=== PATIENT | male | born 1955 | race Caucasian/White ===

== ENCOUNTER 2017-04-28 12:23 | Emergency (ER) | payer BC ==
[~2017-04-28] VITALS: Ht 170.2 cm; Wt 69.0 kg
[2017-04-28 12:28] VITALS: TEMP 36.6; Ht 170.2 cm; Wt 69.0 kg
[2017-04-28] MEDS ORDERED: OXYC-57 PO (13:33)
[2017-04-28] MEDS ORDERED: CABE0.5T PO (13:41)
[2017-04-28] MEDS ORDERED: TRAV0.00 OP (13:41)
--- NOTE | 2017-04-28 14:40 | DIAGNOSTIC IMAGING REPORT ---
MRI LUMBAR SPINE W/O CONTRAST CLINICAL HISTORY: Left L1 disc protrusion. History of epidural steroid injection. Increasing pain. Left leg radiculopathy. TECHNIQUE: Sagittal and axial T1, T2 and STIR images were obtained. COMPARISON STUDY: No previous studies for comparison. OBSERVATIONS: The vertebral bodies and posterior elements appear intact. There is no abnormal bony signal present to suggest a marrow replacement process. L1-2: No disc protrusions or extrusions. No evidence of spinal canal or neural foraminal compromise. L2-3: No disc protrusions or extrusions. No evidence of spinal canal or neural foraminal compromise. L3-4: No disc protrusions or extrusions. No evidence of spinal canal or neural foraminal compromise. L4-5: No disc protrusions or extrusions. No evidence of spinal canal or neural foraminal compromise. L5-S1: There is a moderate left-sided disc extrusion which abuts and displaces the left S1 nerve root. The conus medullaris and cauda equina appear normal. IMPRESSION: Moderate left paracentral disc protrusion at the L5-S1 level. This abuts and displaces the left S1 nerve root. Electronically signed by: Santo Brandt M.D. 04/28/2017 2:39 PM Dictated Date/Time: 04/28/2017 2:35 PM
--- NOTE | 2017-04-28 15:50 | EMERGENCY ROOM VISIT NOTE ---
ED Visit Note First contact with patient: 13:15 CHIEF COMPLAINT: Low back pain HISTORY OF PRESENT ILLNESS: This 61-year-old male patient presents to the emergency department ambulatory, with his complaining of pain in the low back which has been worsening since a steroid epidural injection which was completed last . Patient is being followed by Dr. marino regarding chronic low back pain and disc protrusion in lumbosacral spine. Patient states injection was completed on and this was his second epidural injection. He states when pain began worsening over the weekend, he called Dr. marino received a prescription for Medrol Dosepak starting yesterday. Despite the medications, patient continues to experience severe discomfort in the left side of his lower back. Patient states pain is significantly worse than it has ever been, and he is experiencing weakness in his left lower extremity. The pain is now constant and worse with movement. He experiences relief from the pain while laying flat on his back and his right side. Patient states last Friday, he attempted to go on a camping trip with friends, but had to leave early due to extreme pain. He has been taking Percocet every 5 hours since Friday under the direction of Dr. marino. The patient notes the pain as sharp and steady and a 10/10. The patient has taken methylprednisolone and Percocet for relief of the pain with only minimal improvement. The patient denies any loss of control of their bowel or bladder functions. There has been leg numbness and weakness on the left, but no change in sensation. No nausea or vomiting or abdominal pain. No chest pain or shortness of breath. The patient has had prior back injuries. No dysuria or increased urinary frequency. Patient states he contacted Dr. marino, who advised him to seek care in the emergency department for follow-up MRI regarding worsening symptoms. REVIEW OF SYSTEMS: A review of systems was performed with positives and pertinent negatives listed in the history of present illness. All other systems were reviewed and are negative. ALLERGIES: none MEDICATIONS: Methylprednisolone, Percocet, Travatan, Cabergoline, Vitamin D3 PMH: Pituitary tumor, elevated IOP, kidney stones, Disc protrusion, L-S spine SOCIAL HISTORY: Pt. lives locally with his family. He does occasionally smoke cigars, but denies other tobacco, alcohol, or drug use. PHYSICAL EXAM: VITALS: Vitals are noted on the nurse's note and reviewed by myself. Vital signs stable. GENERAL: 61-year-old male, in no acute distress, nondiaphoretic, well-developed well-nourished. SKIN: The skin was without rashes, erythema, edema, or bruising. Capillary refill less than 2 seconds. NECK: Supple without nuchal rigidity. No cervical spine tenderness. No paraspinous muscle tenderness. HEART: Regular rate and rhythm without murmurs gallops or rubs. LUNGS: Clear to auscultation bilaterally without wheezes, rales or rhonchi. ABDOMEN: Positive bowel sounds x 4. Normal tympanic percussion. Soft, nontender, without masses or organomegaly. Soliman sign negative. MUSCULOSKELETAL: No muscle atrophy, erythema, or edema noted of the back. There is severe tenderness over the lumbar spinous processes on the leftt side. There is moderate tenderness over the paraspinous muscles on the left. There is no tenderness over the thoracic spine or paraspinous muscles. There are no muscle spasms present. The patient is slow to move around with maximum tenderness with changing positions. positive straight leg raise test on the left. NEURO: Patient was alert and oriented to person place and time. Normal sensation to light and sharp touch. Deep tendon reflexes 2+ in the lower extremities. Dorsalis pedis pulse 2+ bilaterally. Strength 5/5 and equal in the bilateral lower extremities. EMERGENCY DEPARTMENT COURSE: Pt. was seen by me and evaluated as above. Patient declined pain medicine in the emergency department. MRI completed and reviewed by radiologist which showed: OBSERVATIONS: The vertebral bodies and posterior elements appear intact. There is no abnormal bony signal present to suggest a marrow replacement process. L1-2: No disc protrusions or extrusions. No evidence of spinal canal or neural foraminal compromise. L2-3: No disc protrusions or extrusions. No evidence of spinal canal or neural foraminal compromise. L3-4: No disc protrusions or extrusions. No evidence of spinal canal or neural foraminal compromise. L4-5: No disc protrusions or extrusions. No evidence of spinal canal or neural foraminal compromise. L5-S1: There is a moderate left-sided disc extrusion which abuts and displaces the left S1 nerve root. The conus medullaris and cauda equina appear normal. IMPRESSION: Moderate left paracentral disc protrusion at the L5-S1 level. This abuts and displaces the left S1 nerve root. I compared this MRI with previous MRI completed 03/11/[address] Marino and reviewed by radiologist at [facility]. This MRI had findings of: 1. Nerve root contact at L2-L3, L3-L4, L4-L5, L5-S1. Correlation with dermatomal symptom level recommended. 2.Multilevel neural foraminal narrowing, at worse moderate. 3. L4 and S2 vertebral body T2/STIR hyperintense and T1 isointense lesions which cannot be further characterized. Differential diagnosis includes osseous metastases or atypical hemangiomas (venous malformations). Lumbar spine CT could be considered to assess for bony trabeculations (characteristic of hemangiomas). 4. Grade 1 retrolisthesis of L5 on S1. 5. No lumbar spinal canal stenosis. Discussion with patient regarding no significant change noted on MRI and no hematoma related to recent epidural. Spoke with Qi, environmental conservation officer, at Dr. Marino office who informed me that the patient was offered an appointment today , but declined. Qi scheduled patient an appointment for tomorrow at 1:15 for follow-up regarding complaints and workup completed today. Patient states he believes he has 5 Percocet at home and will use this throughout the night as directed for pain management until follow-up tomorrow. DIAGNOSIS: L5-S1 disc protrusion which abuts and displaces the left S1 nerve root. DISCHARGE INSTRUCTIONS AND TREATMENT: Rest off your feet, and heat to the low back. See Dr. marino tomorrow for follow-up. Use Percocet as directed for pain management and continue taking Medrol Dosepak as prescribed by Dr. marino. In addition, may use Ibuprofen 600 mg and Tylenol 1000 mg every 6 hours if needed for the pain, however he should not exceed a dose of 4000 mg of Tylenol from all sources including Percocet and 24 hours. Return if any problems with bowel or bladder function or if loss of sensation/movement of lower extremities. Current/Historical Medications Scheduled Cabergoline (Cabergoline), 0.5 MG PO 3XWK Travoprost (Travatan Z), 1 DROPS OP HS Scheduled PRN Oxycodone/Acetaminophen 5MG/325MG (Percocet 5MG/325MG), 1 TABLET PO Q5H PRN for Pain Allergies Coded Allergies: No Known Allergies (Unverified , 04/28/17) Vital Signs Date Time Temp Pulse Resp B/P (MAP) Pulse Ox O2 Delivery O2 Flow Rate FiO2 04/28/17 15:56 60 18 139/92 98 04/28/17 13:53 59 18 124/75 97 Room Air 04/28/17 12:28 36.6 85 20 139/91 98 Room Air Departure Information Impression Primary Impression: Intervertebral disc extrusion Additional Impression: Low back pain radiating down leg Dispostion Home / Self-Care Condition GOOD Referrals Can Marino D.O. (PCP) tomorrow at 1:15 Patient Instructions My [facility] Additional Instructions You have been treated in the Emergency Department for Back Pain related to disc extrusion at L5-S1 which abuts and displaces the left S1 nerve root. Take Percocet you have at home as prescribed for pain control. This is a narcotic medication. You cannot drive or consume alcohol while on this medicine. This medicine should only be used for pain that cannot be controlled with [id number] pain medicines. Continue to take Medrol Dosepak as prescribed to you by Dr. marino. For pain control, you can use the following [id number] medicines (if >12 yo): - Regular strength (325mg/tab) Tylenol (acetaminophen) 2 tabs every 4-6 hours as needed. Do not exceed 12 tablets in a 24 hour period. Avoid taking more than 4 grams (4000 mg) of Tylenol per day. This includes any other sources of acetaminophen you may take on a regular basis, including Percocet. - Regular strength (200 mg/tab) Advil (ibuprofen) 1-2 tabs every 4-6 hours as needed. Do not exceed a dose of 3200 mg per day. Use a heating pad can be used over the area for continued soothing relief. Your scheduled to follow-up with Dr. marino tomorrow regarding further pain management. Return to the Emergency Department if your current symptoms worsen despite treatment course outlined above, or if you develop any of the following symptoms : intractable pain despite aforementioned treatment course, loss of control of your bowel or bladder, numbness or tingling in your groin, or development of a fever. Problem Qualifiers
[2017-04-28 15:56] VITALS: BP 139/92; PULSE 60; O2SAT 98
[2017-05-02] MEDS ORDERED: RXC5 PO (07:21)
== END 2017-04-28 16:00 | disposition home or self-care (01) ==
LOC: C.EDB 12:25 → C.EDD 16:00
DX: M51.26 Other intervertebral disc displacement, lumbar region (principal); Z87.442 Personal history of urinary calculi; Z85.9 Personal history of malignant neoplasm, unspecified; F17.290 Nicotine dependence, other tobacco product, uncomplicated; Z79.899 Other long term (current) drug therapy

== ENCOUNTER → 2017-04-29 | Outpatient (CLI) | payer BC ==
[~2017-04-29] MED LIST: CABE0.5T PO; OXYC-57 PO; RXC5 PO; TRAV0.00 OP
--- NOTE | 2017-04-29 16:30 | DIAGNOSTIC IMAGING REPORT ---
CHEST 2 VIEWS ROUTINE CLINICAL HISTORY: PRE-OP, COMING FROM LAB THEN TO [facility] COMPARISON STUDY: No previous studies for comparison. FINDINGS: The bones soft tissues and hemidiaphragms are normal. The cardiomediastinal silhouette is normal. The lungs are clear. The pulmonary vasculature is normal. IMPRESSION: Negative chest. Electronically signed by: Rosendo Davila M.D. 04/29/2017 4:28 PM Dictated Date/Time: 04/29/2017 4:28 PM
[2017-04-29 16:40] LABS: BASO % 0.4 %; BASO ABS # 0.04 K/uL (0-0.2); COMPLETE YES; EOS % 0.2 %; HEMATOCRIT 40.6 % (42-52); IG% 0.4 %; LYMPH % 20.3 %; LYMPH ABS # 1.98 K/uL (1.2-3.4); MEAN CELL VOLUME 87.7 fL (80-100); MEAN CORPUSCULAR HEMOGLOBIN 28.9 pg (25-34); MEAN PLATELET VOLUME 9.9 fL (7.4-10.4); MONO % 9.4 %; NEUT % 69.3 %; PLATELET COUNT 276 K/uL (130-400); RED BLOOD COUNT 4.63 M/uL (4.7-6.1); WHITE BLOOD COUNT 9.75 K/uL (4.8-10.8)
[2017-04-29 16:41] LABS: URINE APPEARANCE CLEAR (CLEAR); URINE BILIRUBIN NEG (NEG); URINE COLOR YELLOW; URINE NITRITE NEG (NEG); URINE SPECIFIC GRAVITY 1.015 (1.000-1.030); UROBILINOGEN NEG (NEG)
[2017-04-29 16:47] LABS: MANUAL MICROSCOPIC REQUIRED? NO; REVIEW REQ? NO
[2017-04-29 17:08] LABS: BLOOD UREA NITROGEN 16 mg/dl (7-18); BUN/CREATININE RATIO 15.5 (10-20); CALCIUM 8.6 mg/dl (8.5-10.1); CARBON DIOXIDE 33 mmol/L (21-32); CHLORIDE 106 mmol/L (98-107); GLUCOSE 90 mg/dl (70-99); POTASSIUM 3.5 mmol/L (3.5-5.1); SODIUM 144 mmol/L (136-145)
== END | disposition home or self-care (01) ==
LOC: C.CPL 15:58
PROVIDERS: ATTEND Physician Assistant Medical
DX: M51.26 Other intervertebral disc displacement, lumbar region (principal); Z01.810 Encounter for preprocedural cardiovascular examination

== ENCOUNTER 2017-05-01 10:45 | Inpatient (IN) | payer BC ==
[2017-04-30 15:51] VITALS: BMI 23.0
[~2017-05-01] VITALS: Ht 170.2 cm; Wt 68.6 kg
[~2017-05-01 10:45] MED LIST changes: +CEFAZOLIN 1000MG/55 ML D5W IV SCH; +LACTATED RINGER'S 1000ML 1,000 ML IV SCH; +PATIENT'S HEIGHT AND/OR WEIGHT NEEDED SCH; -RXC5 PO
[2017-05-01 11:20] VITALS: BP 158/106; PULSE 53; TEMP 36.7; O2SAT 98; Ht 170.2 cm; Wt 68.6 kg
[2017-05-01] MEDS ORDERED: BUPIVACAINE/EPINEPHRINE 0.5% MPF 1:200,000 30 ML VIAL ONE (12:05)
[2017-05-01] MEDS ORDERED: BACITRACIN 50000 UNIT VIAL ONE (12:06)
--- NOTE | 2017-05-01 12:48 | History & Physical Bridge Note ---
H&P Re-Evaluation Bridge Note: I have examined the patient, reviewed the History & Physical and in the interval since the performance of the History & Physical I have noted the following changes of clinical significance: No changes noted
--- NOTE | 2017-05-01 12:49 | History and Physical ---
History & Physical Date May 01, 2017. Chief Complaint back and leg pain History of Present Illness The patient is a 61 year old male with complaints of Additional History Hepatic Disease: No Endocrine Disorder: No Kidney Disease: No Hypertension: No Heart Disease: No Bleeding Tendencies: No Infectious Diseases: No Allergies Coded Allergies: No Known Allergies (Unverified , 05/01/17) Home Medications Scheduled Cabergoline (Cabergoline), 0.5 MG PO 3XWK Travoprost (Travatan Z), 1 DROPS OP HS Scheduled PRN Oxycodone/Acetaminophen 5MG/325MG (Percocet 5MG/325MG), 1 TABLET PO Q5H PRN for Pain Physical Examination Skin: warm/dry, no rash Eyes: normal inspection, EOMI, sclerae normal ENT: normal ENT inspection, pharynx normal Head: normocephalic, atraumatic Neck: supple, no adenopathy, trachea midline Respiratory/Chest: lungs clear, normal breath sounds, no respiratory distress Cardiovascular: regular rate, rhythm, no edema, no murmur Abdomen / GI: normal bowel sounds, non tender Back: normal inspection Extremities: normal inspection, normal range of motion Neurologic/Psych: no motor/sensory deficits, alert, normal reflexes, oriented x 3 Diagnosis HNP L5-S1 Plan of Treatment laminectomy L5-S1 Left
[2017-05-01] MEDS ORDERED: MIDAZOLAM HCL 1 MG/ML 2ML VIAL ONE (12:55)
[2017-05-01] MEDS ORDERED: FENTANYL CITRATE INJ 50 MCG/1 ML 2 ML VIAL ONE ×2 (12:55→13:24)
[2017-05-01] MEDS ORDERED: HYDROmorphone INJ 2 MG/ML SYR/VIAL ONE (13:24)
[2017-05-01] MEDS ORDERED: LIDOCAINE HCL 2% 2 ML VIAL (20MG/ML) ONE (13:42)
[2017-05-01] MEDS ORDERED: GLYCOPYRROLATE INJ 0.2 MG/ML VIAL ONE (13:42)
[2017-05-01] MEDS ORDERED: DEXAMETHASONE SOD INJ 4 MG/ML VIAL ONE (13:42)
[2017-05-01] MEDS ORDERED: ROCURONIUM BROMIDE 10 MG/ML 5 ML VIAL ONE (13:42)
[2017-05-01] MEDS ORDERED: EpHEDrine SULFATE INJ 50 MG/ML AMP ONE (13:42)
[2017-05-01] MEDS ORDERED: NEOSTIGMINE METHYLSULFATE 1 MG/ML 10ML VIAL ONE (13:42)
[2017-05-01] MEDS ORDERED: ONDANSETRON INJ 2 MG/ML 2 ML VIAL ONE (13:42)
[2017-05-01] MEDS ORDERED: PROPOFOL IV EMULSION 10 MG/ML 20 ML VIAL IV ONE (13:42)
[2017-05-01] MEDS ORDERED: FLOSEAL HEMOSTATIC MATRIX 5ML TOP ONE (13:54)
--- NOTE | 2017-05-01 13:57 | [facility] Post Operative Brief Note ---
Immediate Operative Summary Operative Date May 01, 2017. Pre-Operative Diagnosis Herniated Nucleus Pulposus L5-S1 left Post-Operative Diagnosis Herniated Nucleus Pulposus L5-S1 left Procedure(s) Performed Left L5-S1 Microdiscectomy Surgeon Dr. Audra Chappell Remelt Operator Surgeon(s) none Estimated Blood Loss 10mL Findings hnp Specimens none per surgeon
[2017-05-01] MEDS ORDERED: DO NOT ADMINISTER FLU VACCINE PRN ×3 (14:00)
[2017-05-01] MEDS ORDERED: ONDANSETRON INJ 2 MG/ML 2 ML VIAL IV PRN (14:00)
[2017-05-01] MEDS ORDERED: DO NOT ADMINISTER PNEUMOCOCCAL VACCINE PRN ×2 (14:00)
[2017-05-01] MEDS ORDERED: LORAZEPAM INJ 1 MG in SYRINGE 0 ML IV PRN (14:00)
[2017-05-01] MEDS ORDERED: ACETAMINOPHEN 325 MG TAB PO PRN (14:00)
[2017-05-01] MEDS ORDERED: ACETAMINOPHEN 500 MG TAB PO PRN (14:00)
[2017-05-01] MEDS ORDERED: LABETALOL HCL IV 5 MG/ML 20ML IV ONE (14:14)
[2017-05-01] MEDS ORDERED: KETOROLAC TROMETHAMINE 30 MG/ML VIAL ONE (14:14)
[2017-05-01] MEDS ORDERED: IV FLUIDS COMPLETED PRN (14:15)
--- NOTE | 2017-05-01 14:21 | DIAGNOSTIC IMAGING REPORT ---
INTRAOPERATIVE RADIOGRAPH CLINICAL HISTORY: L5-S1 microdiscectomy. Fluoroscopy time: 4 seconds. FINDINGS: A single spot fluoroscopic image of the lumbar spine is presented. A cerclage wire is noted posteriorly at the level of S1. IMPRESSION: Intraoperative image of the lower lumbar spine. See operative report for detailed findings. Electronically signed by: Deshawn Haynes M.D. 05/01/2017 2:20 PM Dictated Date/Time: 05/01/2017 2:19 PM
--- NOTE | 2017-05-01 15:13 | Anesthesiology Progress Note ---
Anesthesia Post Op Note Date & Time May 01, 2017 at 15:14 Vital Signs Pain Intensity: 0 Vital Signs Past 12 Hours Date Time Temp Pulse Resp B/P (MAP) Pulse Ox O2 Delivery O2 Flow Rate FiO2 05/01/17 14:53 36.6 51 16 174/96 100 Mask 2 05/01/17 14:43 54 21 100 05/01/17 14:43 53 21 05/01/17 14:42 168/95 05/01/17 14:38 53 12 05/01/17 14:38 53 12 100 05/01/17 14:37 178/95 05/01/17 14:33 69 14 183/114 100 05/01/17 14:33 69 14 05/01/17 14:29 166/102 05/01/17 14:28 59 11 05/01/17 14:28 58 11 100 05/01/17 14:27 174/107 05/01/17 14:26 58 11 05/01/17 14:26 58 11 100 05/01/17 14:22 173/104 05/01/17 14:21 62 22 100 05/01/17 14:21 64 22 05/01/17 14:17 179/101 05/01/17 14:16 62 7 93 05/01/17 14:16 57 7 05/01/17 14:12 173/103 05/01/17 14:11 69 19 100 05/01/17 14:11 69 19 05/01/17 14:08 174/99 05/01/17 14:06 36.2 60 13 174/99 100 Mask 10 05/01/17 11:20 36.7 53 20 158/106 (123) 98 Room Air Notes Mental Status: alert / awake / arousable, participated in evaluation Pt Amnestic to Procedure: Yes Nausea / Vomiting: adequately controlled Pain: adequately controlled Airway Patency, RR, SpO2: stable & adequate BP & HR: stable & adequate Hydration State: stable & adequate Anesthetic Complications: no major complications apparent
[2017-05-01] MEDS ORDERED: EpHEDrine SULFATE INJ 50 MG/ML AMP IV PRN (15:15)
[2017-05-01] MEDS ORDERED: ATROPINE SULFATE 0.1 MG/ML 5ML SYR IV PRN (15:15)
--- NOTE | 2017-05-01 16:05 | OPERATIVE REPORT ---
DATE OF OPERATION: 05/01/2017 PREOPERATIVE DIAGNOSIS: Herniated nucleus pulposus, L5-S1, left. POSTOPERATIVE DIAGNOSES: Same with evidence of a herniated free fragment. SURGEON: Dr. Ru Chappell. ANESTHESIA: General. DISPOSITION: The patient awakened and taken to PACU in stable condition. HISTORY OF PATIENT'S PROBLEMS: This is a 61-year-old male who presents with above-mentioned diagnosis. After failing an extensive course of nonoperative care, elected to undergo the above-mentioned procedure. Risks, benefits, pros, cons, and alternatives were outlined in detail preoperatively. DESCRIPTION OF PROCEDURE: The patient was met with preoperatively, case discussed and all questions were addressed. At that point the patient was taken back to the operative suite and after undergoing successful general intubation by the department of anesthesia was placed in prone position on Tonio table atop Kirill frame. All bony prominences were well padded and the eyes were inspected to ensure there was no external pressure placed upon them. At this point, lumbar spine was prepped and draped in normal sterile fashion. With the assistance of fluoroscopy, we identified the L5-S1 disc space and a midline incision was created overlying this region. Sharp dissection with the assistance of Bovie cautery performed down to and exposing L5-SI disk space on the left. A self-retaining retractor was placed. Small laminotomy was created including excision of the lateral portion of ligamentum flavum to expose a significantly compressed traversing nerve root. A massive free fragment was identified and removed creating significant decompression. The incision was then copiously irrigated, explored to ensure there no damage to surrounding structures or remaining bleeding. The incision then closed with 1-0 Vicryl in the fascia, 2-0 Vicryl subcutaneously, 4-0 Monocryl for final skin closure. Steri-Strips and sterile dressing were placed. The patient was awakened and taken to PACU in stable condition. I attest to the content of the Intraoperative Record and any orders documented therein. Any exception s are noted below.
[2017-05-01 16:27] VITALS: BP 168/83; PULSE 55; TEMP 36.8; O2SAT 97
[2017-05-01] MEDS: LACTATED RINGER'S 1000ML 1,000 ML IV SCH (16:27)
[2017-05-01 17:02] VITALS: BP 158/88; PULSE 58; TEMP 37; O2SAT 97
[2017-05-01 18:00] VITALS: BP 146/96; PULSE 65; TEMP 37.1; O2SAT 95
[2017-05-01 19:00] VITALS: BP 126/79; PULSE 69; TEMP 36.8; O2SAT 97
[2017-05-01] MEDS: CEFAZOLIN IV 1,000 MG in DEXTROSE 5% 50ML 50 ML IV SCH (21:31)
[2017-05-01] MEDS: TRAVOPROST Z 0.004% OPH SOLN 2.5 ML BTL OP SCH (21:39)
[2017-05-01] MEDS: DOCUSATE SODIUM 100 MG CAP PO SCH (21:41)
[2017-05-01 23:37] VITALS: BP 126/88; PULSE 68; TEMP 37.4; O2SAT 95
[2017-05-02] MEDS: OXYCODONE HCL IR 5 MG TAB (IMMEDIATE RELEASE) PO PRN ×2 (01:02→07:27)
[2017-05-02] MEDS: LACTATED RINGER'S 1000ML 1,000 ML IV SCH ×2 (01:02→05:20)
[2017-05-02 04:04] VITALS: BP 150/84; PULSE 64; TEMP 37.2; O2SAT 96
[2017-05-02] MEDS: KETOROLAC TROMETHAMINE 30 MG/ML VIAL IV. PRN ×2 (04:19→18:21)
[2017-05-02] MEDS: CEFAZOLIN IV 1,000 MG in DEXTROSE 5% 50ML 50 ML IV SCH ×2 (05:15→12:54)
[2017-05-02] MEDS: HYDROmorphone INJ 1 MG/ML SYR IV PRN ×2 (05:16→23:08)
[2017-05-02 07:20] VITALS: BP 126/80; PULSE 63; TEMP 37.2; O2SAT 95
[2017-05-02] MEDS ORDERED: RXC5 PO (07:21)
--- NOTE | 2017-05-02 07:22 | Discharge Instructions ---
Discharge Instructions Date of Service May 02, 2017. Admission Reason for Admission: Lumbar Spinal Stenosis Discharge Discharge Diagnosis / Problem: hnp Discharge Goals Goal(s): Improve function Activity Recommendations Activity Limitations: per Instructions/Follow-up section . Instructions / Follow-Up Instructions / Follow-Up ACTIVITY RECOMMENDATIONS: SELF CARE INSTRUCTIONS AFTER A LAMINECTOMY 1. No prolonged sitting (less than 30 minutes for the first 3 weeks after surgery). 2. No bending, lifting more than 5 pounds, or twisting (roll like a log when turning in bed). 3. You may shower 3 days after surgery if no drainage from wound. Thoroughly dry wound. Do not soak in the tub. 4. Please walk as much as you can for exercise. Gradually increase the distance that you walk as your endurance increases. 5. You may drive in 7-10 days if you are comfortable and no longer requiring pain medications. SPECIAL CARE INSTRUCTIONS: VERY IMPORTANT TO READ AND REVIEW A. Your surgical incision has been closed with a cosmetic suture under the skin that will dissolve in about 6 weeks. In 14 days, you can use a pair of clean scissors and cut the suture that is left outside of the skin at the ends of your incision. B. Complications are uncommon, but please contact us if you have any signs or symptoms of: 1. wound infection (fever higher than 102.5 degrees F, redness, separation of wound, drainage, or increasing pain from the incision) 2. blood clots in legs (pain, swelling, redness and warmth in legs) 3. urinary tract infection (fever higher than 102.5 degrees, burning upon urination or increased frequency of urination) 4. nerve problems (inability to walk on your toes or heels, numbness, loss of bowel or bladder control) 5. any other symptoms that concern you. C. Please call the office at if you have any concerns or questions about your operation or recovery. MANAGING PAIN AFTER SPINAL SURGERY 1. Narcotic medication is intended for short-term use and will be provided for surgical pain. Surgical pain usually lasts for a period of 4-6 weeks. Narcotic medication includes Percocet, Vicodin, Darvocet, Tylenol #3 or Lortab. 2. Longer-term pain is more appropriately treated with non-narcotic medication such as Tylenol ES. 3. Muscle spasm is not appropriately treated with narcotics. Muscle relaxers such as Soma, Flexeril or Skelaxin can be used along with Tylenol ES. 4. Remember that we all live with some "aches and pains". This is not unusual or uncommon after an injury or as we get older. 5. We will provide appropriate medication within the normal guidelines of their prescribed use. We will also be very cautious and aware of potential abuse and extended duration of patients' medication needs. 6. Please allow 2-3 days to process refills. Prescriptions will not be mailed but must be picked up at the office. FOLLOW UP VISIT: Keep your scheduled follow-up appointment. Any questions, please call the office at . Current Hospital Diet Patient's current hospital diet: Regular Diet Discharge Diet Recommended Diet: Regular Diet Procedures Procedures Performed: Left L5-S1 Microdiscectomy Pending Studies Studies pending at discharge: no Medical Emergencies . Who to Call and When: Medical Emergencies: If at any time you feel your situation is an emergency, please call 911 immediately. . Non-Emergent Contact Non-Emergency issues call your: Primary Care Provider . "Provider Documentation" section prepared by Ru Chappell. . VTE Core Measure Inpt VTE Proph given/why not?: Donte Barnes, SCD's
[2017-05-02] MEDS: LORAZEPAM 1 MG TAB PO PRN (07:27)
[2017-05-02] MEDS: DOCUSATE SODIUM 100 MG CAP PO SCH ×2 (07:27→21:28)
[2017-05-02] MEDS ORDERED: OXYCODONE HCL IR 5 MG TAB (IMMEDIATE RELEASE) PO PRN (07:45)
[2017-05-02] MEDS: DEXAMETHASONE INJ 8 MG in SYRINGE 0 ML IV SCH ×3 (12:16→23:41)
--- NOTE | 2017-05-02 13:12 | PROGRESS NOTE ---
DATE: 05/02/2017 DATE: 05/02/2017. SUBJECTIVE: Postop day 1. Unfortunately, he had the onset of significant left leg pain beginning late yesterday. Initially postop the pain was completely resolved, he was quite comfortable but upon getting out of bed and ambulating to the restroom he had the return onset of left sciatica. It has been quite incapacitating in nature. He must lie on his side in a crouched position to obtain any relief. OBJECTIVE: On physical exam his vital signs are stable. T-max 37.2. He has excellent strength to testing. Does have tension signs to straight leg raising on the left. ASSESSMENT: Status post lumbar laminotomy, excision of herniated fragments. PLAN: At this time, he did have a massive disc herniation that was removed without difficulty yesterday. I am concerned that he would be at risk for recurrent disc herniation in light of the anatomy of his 5-1 disc. We will keep him at bed rest and modest activity today. A short course of IV Decadron and reassess him tomorrow. If he continues to have significant pain I may consider updating an MRI of the lumbar spine to rule out recurrent disc herniation. The patient understands and agrees.
[2017-05-02 15:16] VITALS: BP 143/84; PULSE 72; TEMP 37.1; O2SAT 95
[2017-05-02] MEDS: MAGNESIUM HYDROXIDE SUSP 30 ML UDC PO PRN (15:34)
[2017-05-02] MEDS: TRAVOPROST Z 0.004% OPH SOLN 2.5 ML BTL OP SCH (21:28)
[2017-05-02 23:49] VITALS: BP 138/89; PULSE 63; TEMP 37; O2SAT 95
[2017-05-03] MEDS: HYDROmorphone INJ 1 MG/ML SYR IV PRN ×2 (04:30→16:21)
[2017-05-03] MEDS: DEXAMETHASONE INJ 8 MG in SYRINGE 0 ML IV SCH ×4 (05:39→23:54)
[2017-05-03] MEDS ORDERED: BISACODYL 10 MG SUPP PR PRN (06:00)
[2017-05-03] MEDS ORDERED: BISACODYL 5 MG TABEC PO PRN (06:00)
[2017-05-03 07:48] VITALS: BP 132/75; PULSE 64; TEMP 37; O2SAT 96
[2017-05-03] MEDS: DOCUSATE SODIUM 100 MG CAP PO SCH ×2 (08:14→20:13)
[2017-05-03] MEDS: POLYETHYLENE (MIRALAX) 17 GM PACK PO SCH (08:14)
--- NOTE | 2017-05-03 10:10 | PROGRESS NOTE ---
DATE: 05/03/2017 DATE: 05/03/2017. SUBJECTIVE: He continues to have significantly incapacitating left leg pain. Again, this began approximately 6 hours postop with ambulation. I strongly suspect he has a recurrent disc herniation. He is able to lie in a position with relative comfort, lying supine is not tolerated for any length of time. Certainly sitting, standing, walking limited. OBJECTIVE: On exam he has excellent strength to testing, remarkably positive straight leg raise on the left, negative on the right. Dressing is in place. ASSESSMENT: Status post lumbar laminotomy with evidence for recurrent disc herniation. PLAN: At this time, we will update an MRI lumbar spine, review his findings and make further recommendations. We will maintain Decadron as this is controlling some of his pain.
[2017-05-03] MEDS: MAGNESIUM HYDROXIDE SUSP 30 ML UDC PO PRN (10:42)
[2017-05-03 15:11] VITALS: BP 136/87; PULSE 72; TEMP 36.9; O2SAT 95
[2017-05-03] MEDS: LORAZEPAM 1 MG TAB PO PRN (16:21)
--- NOTE | 2017-05-03 17:38 | DIAGNOSTIC IMAGING REPORT ---
MRI OF THE LUMBAR SPINE WITHOUT CONTRAST CLINICAL HISTORY: Left leg pain. Lumbar spinal stenosis. COMPARISON STUDY: Lumbar spine MRI April 28, 2017. TECHNIQUE: Utilizing a 1.5 Monika magnet and dedicated coil, multiplanar, multiecho imaging of the lumbar spine was performed without IV contrast. FINDINGS: For purposes of numbering on this exam, the L5-S1 disc space is assigned to axial image 12 of 21. Alignment of the lumbar spine is anatomic. Vertebral body heights are maintained. Scattered T1 and T2 hyperintense lesions reflect hemangiomas. There is no intracanalicular mass or fluid collection. Conus terminates at the T12 level. Paravertebral soft tissues are unremarkable. There is marked distention of the bladder. L1-2: The central canal and neural foramen are patent. L2-3: The central canal and neural foramen are patent. L3-4: The central canal and neural foramen are patent. L4-5: The central canal and neural foramen are patent. L5-S1: There are postsurgical findings suggestive of a left hemilaminectomy. Edema and fluid within the operative bed is within normal limits in the early postoperative setting. There is no large fluid collection. Note is made of a small 1.3 cm fluid collection within the laminectomy bed. This is not unexpected. Note is made of a 0.9 x 0.8 x 0.8 cm T2 hyperintense left paracentral focus shown on sagittal image 9 of 15 and axial image 24 of 25. This is at the site of disc herniation shown on exam of April 28, 2017. This has mass effect upon the descending left S1 nerve root. IMPRESSION: 1. Status post left L5-S1 hemilaminotomy. 9 mm x 8 mm x 8 mm left paracentral abnormality at site of disc herniation shown on preoperative MRI of April 28, 2017. This may reflect recurrent disc herniation or postsurgical change. Mass effect upon the descending left S1 nerve root. This could be correlated with left S1 radiculopathy. 2. Marked bladder distention. 3. Minimal edema and tiny fluid collection within the operative bed which are within normal limits in the early postoperative setting. Electronically signed by: Jim Woodall M.D. 05/03/2017 5:37 PM Dictated Date/Time: 05/03/2017 5:24 PM
[2017-05-03] MEDS ORDERED: NURSING VERBAL MED ORDER ONE (18:00)
[2017-05-03] MEDS ORDERED: PANTOprazole SOD 40 MG TAB PO ONE (18:15)
[2017-05-03] MEDS ORDERED: LIDOCAINE HCL 2% JELLY 30 ML TUBE EXT ONE (18:34)
[2017-05-03] MEDS ORDERED: NURSING DECISION MEDICATION ORDER SCH (18:45)
[2017-05-03] MEDS: TRAVOPROST Z 0.004% OPH SOLN 2.5 ML BTL OP SCH (20:13)
[2017-05-03] MEDS: CALCIUM CARBONATE 500 MG CHEWABLE PO PRN (20:13)
[2017-05-03 22:51] VITALS: BP 138/85; PULSE 61; TEMP 37.1; O2SAT 96
[2017-05-04] MEDS: HYDROmorphone INJ 1 MG/ML SYR IV PRN ×2 (03:27→21:16)
[2017-05-04] MEDS: DEXAMETHASONE INJ 8 MG in SYRINGE 0 ML IV SCH (06:09)
[2017-05-04 07:33] VITALS: BP 130/73; PULSE 64; TEMP 36.8; O2SAT 94
[2017-05-04] MEDS: POLYETHYLENE (MIRALAX) 17 GM PACK PO SCH (08:40)
[2017-05-04] MEDS: DOCUSATE SODIUM 100 MG CAP PO SCH ×2 (08:40→21:21)
[2017-05-04] MEDS: PANTOprazole SOD 40 MG TAB PO SCH (08:40)
--- NOTE | 2017-05-04 10:04 | PROGRESS NOTE ---
DATE: 05/04/2017 SUBJECTIVE: He continues to have incapacitating left leg pain, inability to ambulate and now struggling with intermittent urinary retention secondary to the medication. PHYSICAL EXAMINATION: He continues to have significant radicular complaints and tension signs in left lower extremity, no strength deficits. I reviewed his MRI findings with him. He does have significant evidence for recurrent disk herniation L5-S1 on the left, but again continued displacement of the traversing S1 nerve root. Again, there is appreciable disc space collapse and retrolisthesis L5-S1. All other levels appear relatively benign. ASSESSMENT: Recurrent disk herniation L5-S1 with retrolisthesis. PLAN: At this time, we have discussed his options ____ with pain medication versus revision procedure. At this point, in light of his spinal alignment and how quickly he recurred, I would recommend a complete discectomy and fusion L5-S1. Risks, benefits, pros, cons, and alternatives were outlined in detail. The patient would like to pursue this. We will make him n.p.o. after midnight and plan for surgery tomorrow.
[2017-05-04] MEDS: CALCIUM CARBONATE 500 MG CHEWABLE PO PRN (10:56)
[2017-05-04] MEDS ORDERED: NURSING VERBAL MED ORDER ONE (13:45)
[2017-05-04] MEDS ORDERED: SOD PHOSPHATE/SOD BIPHOSPHATE ENEMA 132 ML BTL PR PRN (14:00)
[2017-05-04 15:36] VITALS: BP 144/82; PULSE 70; TEMP 37; O2SAT 97
[2017-05-04 16:00] VITALS: O2SAT 97
[2017-05-04] MEDS: TRAVOPROST Z 0.004% OPH SOLN 2.5 ML BTL OP SCH (21:21)
[2017-05-04 23:04] VITALS: BP 135/87; PULSE 60; TEMP 37.2; O2SAT 96
[2017-05-05] VITALS (7 sets, daily range): BP systolic 133–162; BP diastolic 78–95; PULSE 55–67; TEMP 36.8–37.1; O2SAT 97–100
[2017-05-05] MEDS: HYDROmorphone INJ 1 MG/ML SYR IV PRN ×4 (03:32→17:34)
[2017-05-05] MEDS: PANTOprazole SOD 40 MG TAB PO SCH (09:00)
[2017-05-05] MEDS: DOCUSATE SODIUM 100 MG CAP PO SCH ×2 (09:00→21:13)
[2017-05-05] MEDS: POLYETHYLENE (MIRALAX) 17 GM PACK PO SCH (09:00)
[2017-05-05] MEDS ORDERED: MIDAZOLAM HCL 1 MG/ML 2ML VIAL ONE (13:42)
[2017-05-05] MEDS ORDERED: FENTANYL CITRATE INJ 50 MCG/1 ML 2 ML VIAL ONE (13:42)
[2017-05-05] MEDS ORDERED: BUPIVACAINE/EPINEPHRINE 0.5% MPF 1:200,000 30 ML VIAL ONE (14:26)
[2017-05-05] MEDS ORDERED: SODIUM CHLORIDE 0.9% PF 50 ML VIAL ONE (14:26)
[2017-05-05] MEDS ORDERED: BACITRACIN 50000 UNIT VIAL ONE (14:27)
[2017-05-05] MEDS ORDERED: NURSING VERBAL MED ORDER ONE ×2 (14:45→15:30)
[2017-05-05] MEDS ORDERED: LACTATED RINGER'S 1000ML 1,000 ML IV SCH (15:00)
[2017-05-05] MEDS ORDERED: CEFAZOLIN IV 2,000 MG/60 ML D5W IV ONE (15:22)
[2017-05-05] MEDS ORDERED: CEFAZOLIN 2000 MG/60 ML D5W IV SCH (15:30)
[2017-05-05] MEDS ORDERED: GLYCOPYRROLATE INJ 0.2 MG/ML VIAL ONE (15:52)
[2017-05-05] MEDS ORDERED: ONDANSETRON INJ 2 MG/ML 2 ML VIAL ONE (15:52)
[2017-05-05] MEDS ORDERED: LARYING-O-JET KIT (LTA) ONE ×2 (15:52)
[2017-05-05] MEDS ORDERED: EpHEDrine SULFATE 50MG/5ML SYR ONE (15:52)
[2017-05-05] MEDS ORDERED: ROCURONIUM BROMIDE 10 MG/ML 5 ML VIAL ONE ×2 (15:52→15:57)
[2017-05-05] MEDS ORDERED: NEOSTIGMINE METHYLSULFATE 5 MG/5 ML SYR ONE (15:52)
[2017-05-05] MEDS ORDERED: DEXAMETHASONE SOD INJ 4 MG/ML VIAL ONE (15:52)
[2017-05-05] MEDS ORDERED: LIDOCAINE HCL 2% 2 ML VIAL (20MG/ML) ONE (15:52)
[2017-05-05] MEDS ORDERED: PROPOFOL IV EMULSION 10 MG/ML 20 ML VIAL IV ONE (15:52)
[2017-05-05] MEDS ORDERED: HYDROmorphone INJ 2 MG/ML SYR/VIAL ONE (15:53)
[2017-05-05] MEDS ORDERED: ONDANSETRON INJ 2 MG/ML 2 ML VIAL IV PRN ×2 (16:00→17:00)
[2017-05-05] MEDS ORDERED: MEPERIDINE HCL 25 MG/ML CARP IV PRN (16:00)
[2017-05-05] MEDS ORDERED: NALOXONE HCL 0.4 MG/1 ML VIAL/CARP IV PRN ×3 (16:00→17:00)
[2017-05-05] MEDS ORDERED: PHENYLEPHRINE 100MCG/ML 5ML SYR IV PRN (16:00)
[2017-05-05] MEDS ORDERED: LABETALOL HCL IV 5 MG/ML 20ML IV PRN (16:00)
[2017-05-05] MEDS ORDERED: FLUMAZENIL 0.1 MG/1 ML 10 ML VIAL IV PRN (16:00)
[2017-05-05] MEDS ORDERED: ATROPINE SULFATE 0.1 MG/ML 5ML SYR IV PRN (16:00)
[2017-05-05] MEDS ORDERED: EpHEDrine SULFATE INJ 50 MG/ML AMP IV PRN (16:00)
[2017-05-05] MEDS ORDERED: MoRPHine SULFATE 10 MG/ML CARP/VIAL IV PRN (16:00)
[2017-05-05] MEDS: SODIUM CHLORIDE 0.9% 1000ML 1,000 ML IV SCH (16:49)
--- NOTE | 2017-05-05 16:49 | [facility] Post Operative Brief Note ---
Immediate Operative Summary Operative Date May 05, 2017. Pre-Operative Diagnosis Recurrent disk herniation L5-S1 with retrolisthesis Post-Operative Diagnosis Recurrent disk herniation L5-S1 with retrolisthesis Procedure(s) Performed L5-S1 Lumbar Decompression/Posterior Spinal Fusion, Instrumentation, Interbody Fusion With Application of Interbody Cage at L5-S1, and Posterolateral Gutter Fusion; Application of Bone Morphogenetic Protein; Application of Thania Surgeon Dr. Ru Chappell Java Lead Developer Surgeon(s) Lillie Gutierrez PA-C Estimated Blood Loss 75mL Findings hnp/stenosis Specimens none per surgeon
[2017-05-05] MEDS ORDERED: FLOSEAL HEMOSTATIC MATRIX 10ML TOP ONE (16:54)
[2017-05-05] MEDS ORDERED: ACETAMINOPHEN 500 MG TAB PO PRN (17:00)
[2017-05-05] MEDS ORDERED: MAGNESIUM HYDROXIDE SUSP 30 ML UDC PO PRN (17:00)
[2017-05-05] MEDS ORDERED: DO NOT ADMINISTER PNEUMOCOCCAL VACCINE PRN ×2 (17:00)
[2017-05-05] MEDS ORDERED: METOCLOPRAMIDE HCL INJ 5 MG/ML 2 ML VIAL IV PRN (17:00)
[2017-05-05] MEDS ORDERED: BISACODYL 10 MG SUPP PR PRN (17:00)
[2017-05-05] MEDS ORDERED: hydrOXYzine HCL 25 MG TAB PO PRN (17:00)
[2017-05-05] MEDS ORDERED: PROMETHAZINE HCL INJ 12.5 MG in SODIUM CHLORIDE 0.9% 50ML 50 ML IV PRN (17:00)
[2017-05-05] MEDS ORDERED: ALUMINUM/MAGNESIUM SUSP 30 ML UDC PO PRN (17:00)
[2017-05-05] MEDS ORDERED: DO NOT ADMINISTER FLU VACCINE PRN ×3 (17:00)
[2017-05-05] MEDS ORDERED: ACETAMINOPHEN IV 100 ML IV PRN (17:00)
[2017-05-05] MEDS ORDERED: LORAZEPAM INJ 0.5 MG in SYRINGE 0 ML IV PRN (17:00)
[2017-05-05] MEDS ORDERED: FAMOTIDINE 20 MG TAB PO PRN (17:00)
[2017-05-05] MEDS ORDERED: SOD PHOSPHATE/SOD BIPHOSPHATE ENEMA 132 ML BTL PR PRN (17:00)
--- NOTE | 2017-05-05 17:02 | DIAGNOSTIC IMAGING REPORT ---
INTRAOPERATIVE FLUOROSCOPIC IMAGES OF LUMBAR SPINE CLINICAL HISTORY: L5-S1 FUSION COMPARISON STUDY: Lumbar spine MRI May 03, 2017. Fluoroscopy time: 19 seconds. FINDINGS: 2 fluoroscopic images demonstrate expected findings following L5-S1 discectomy and interbody spacer placement. There are bilateral pedicle screws at the L5 and S1 levels. There is a posterior decompression. Interconnecting rods are present. IMPRESSION: Expected findings following L5-S1 discectomy and bilateral pedicle screw fusion. Electronically signed by: Jim Woodall M.D. 05/05/2017 5:00 PM Dictated Date/Time: 05/05/2017 4:59 PM
--- NOTE | 2017-05-05 17:30 | OPERATIVE REPORT ---
DATE OF OPERATION: 05/05/2017 PREOPERATIVE DIAGNOSES: Recurrent disk herniation at L5-S1 with disk space retrolisthesis. POSTOPERATIVE DIAGNOSES: Same. PROCEDURE PERFORMED: 1. Revision decompression at L5-S1 with facetectomy and foraminotomy on the left. 2. Posterior spinal fusion, L5-S1. 3. Placement of posterior instrumentation using Orthros rods and screws, L5-S1. 4. Interbody fusion, L5-S1. 5. Placement of PEEK cage 12 x 26 mm at L5-S1. 6. Placement of locally harvested morcellized autograft in the posterior gutters. 7. Placement of Infuse collagen sponge combined with Mastergraft in the posterior gutters and Thania bone grafting in interbody space. SURGEON: Dr. Ru Chappell. AIRPORT TOWER CONTROLLER: Lillie Gutierrez PA-C. Due to the complex nature of the procedure, the entire surgery was performed with the scheduling assistant of Lillie Gutierrez PA-C. The community assistant, under direct supervision, was involved in the actual performance of all aspects of the surgical procedure including hemostasis, tissue retraction and incision, instrument management, patient positioning, and wound closure. ANESTHESIA: General. DISPOSITION: The patient awakened and taken to PACU in stable condition. HISTORY OF PATIENT'S PROBLEMS: A 61-year-old male well known to me that presents with above-mentioned diagnoses. After failing an extensive course of nonoperative care, he elected to undergo the above-mentioned procedures. Risks, benefits, pros, cons, and alternatives were outlined in detail preoperatively. DESCRIPTION OF PROCEDURE: The patient was met with preoperatively, the case discussed and all questions were addressed. At that point, the patient was taken back to the operative suite and after undergoing successful general intubation by the department of anesthesia, he was placed in prone position on Tonio table atop a Kirill frame. All bony prominences were well padded and the eyes were inspected to ensure there was no external pressure placed upon them. At this point, lumbar spine was prepped and draped in the normal sterile fashion. Utilizing the previous incision site, sharp dissection with the assistance of Bovie cautery was performed down to and exposing the remaining lamina and transverse processes of L5 and the sacral ala bilaterally. A revision to complete laminectomy at this time of L5 was performed including facetectomy on the left exposing compressed exiting and traversing nerve root. Massive disk herniation was appreciated as well as evidence of significant annular tear on the left. After removal of the fragments, pedicle screws were placed in L5 and S1 bilaterally with assistance of fluoroscopy and appropriate size josue provisionally placed. Through a transforaminal approach on the left, a complete diskectomy of L5-S1 was performed, endplates curetted to subcortical bleeding bone and a 12 x 26 mm PEEK cage filled with Thania bone grafting tapped into position. The rods were then compressed, locked into final position bilaterally and transverse processes of L5 and sacral ala burred to subcortical bone. Infuse collagen sponge combined with Mastergraft and locally harvested morcellized autograft was placed. A 7 flat ANA drain inserted. Incision was closed with 1-0 Vicryl in the fascia, 2-0 Vicryl subcutaneously, and 4-0 Monocryl for final skin closure. Steri-Strips were placed. The patient was awakened and taken to PACU in stable condition. I attest to the content of the Intraoperative Record and any orders documented therein. Any exceptions are noted below. STEPHANY
[2017-05-05] MEDS: HYDROmorphone HCL 0.5MG/ML 50 ML CASSETTE IV PRN ×3 (17:38→22:58)
--- NOTE | 2017-05-05 17:54 | Anesthesiology Progress Note ---
Anesthesia Post Op Note Date & Time May 05, 2017 at 17:54 Vital Signs Pain Intensity: 3 Vital Signs Past 12 Hours Date Time Temp Pulse Resp B/P (MAP) Pulse Ox O2 Delivery O2 Flow Rate FiO2 05/05/17 17:50 36.5 54 16 166/94 100 Nasal Cannula 4 05/05/17 17:40 51 16 174/92 100 Nasal Cannula 4 05/05/17 17:30 54 16 157/93 100 Nasal Cannula 4 05/05/17 17:20 54 16 174/93 100 Mask 10 05/05/17 17:10 53 16 170/93 100 Mask 10 05/05/17 17:03 36.9 83 16 163/88 100 Mask 10 05/05/17 14:06 36.7 88 20 150/93 (112) 96 Room Air 05/05/17 07:41 Room Air 05/05/17 07:29 37.1 67 16 154/89 (110) 97 Room Air Notes Mental Status: alert / awake / arousable, participated in evaluation Pt Amnestic to Procedure: Yes Nausea / Vomiting: adequately controlled Pain: adequately controlled Airway Patency, RR, SpO2: stable & adequate BP & HR: stable & adequate Hydration State: stable & adequate Anesthetic Complications: no major complications apparent
[2017-05-05] MEDS: DEXAMETHASONE INJ 6 MG in SYRINGE 0 ML IV SCH (19:07)
[2017-05-05] MEDS: LACTATED RINGER'S 1000ML 1,000 ML IV SCH (19:07)
[2017-05-05] MEDS: TRAVOPROST Z 0.004% OPH SOLN 2.5 ML BTL OP SCH (21:14)
[2017-05-05] MEDS: DOCUSATE SODIUM/SENNA 50/8.6MG TAB PO SCH (21:14)
[2017-05-06] VITALS (8 sets, daily range): BP systolic 114–152; BP diastolic 66–88; PULSE 60–73; TEMP 36.8–37.1; O2SAT 96–99
[2017-05-06] MEDS: CEFAZOLIN IV 1,000 MG in DEXTROSE 5% 50ML 50 ML IV SCH ×2 (00:10→07:32)
[2017-05-06] MEDS: DEXAMETHASONE INJ 6 MG in SYRINGE 0 ML IV SCH ×2 (02:08→10:25)
[2017-05-06] MEDS: LACTATED RINGER'S 1000ML 1,000 ML IV SCH ×2 (02:08→06:31)
[2017-05-06] MEDS ORDERED: OXYCODONE HCL IR 5 MG TAB (IMMEDIATE RELEASE) PO PRN (06:00)
[2017-05-06] MEDS ORDERED: NURSING VERBAL MED ORDER ONE ×2 (06:45→13:45)
[2017-05-06] MEDS: HYDROmorphone HCL 0.5MG/ML 50 ML CASSETTE IV PRN ×3 (07:03→23:06)
[2017-05-06] MEDS: SODIUM CHLORIDE 0.9% 1000ML 1,000 ML IV SCH (07:32)
[2017-05-06] MEDS ORDERED: HYDROmorphone INJ 1 MG/ML SYR IV PRN (08:00)
--- NOTE | 2017-05-06 08:02 | Discharge Instructions ---
Discharge Instructions Date of Service May 06, 2017. Admission Reason for Admission: Recurrent Herniation Of Lumbar Disc Discharge Discharge Diagnosis / Problem: stenosis Discharge Goals Goal(s): Improve function Activity Recommendations Activity Limitations: per Instructions/Follow-up section . Instructions / Follow-Up Instructions / Follow-Up ACTIVITY RECOMMENDATIONS: SELF CARE INSTRUCTIONS AFTER THORACIC/LUMBAR FUSIONS 1. You may walk to your tolerance. It is good exercise for your legs and back. Expect some back and intermittent leg aches and pains. 2. You may perform "counter-top" level activities (make a sandwich, brandon with a project, etc.). 3. No bending or lifting of more than 10 pounds or back twisting of any nature (roll like a log when turning in bed). 4. You may ride in a car for 20-30 minutes at a time. No driving until after your first visit with your doctor. 5. Frequent changes of position and restricting sitting to 30 minutes at a time will help limit the amount of back spasms and stiffness you may experience. 6. You may discontinue the use of ambulatory aids (cane, crutches, etc.) once your strength and confidence allow. 7. You may residential door unit installer the shower and let water strike your incision when you arrive home at least once daily. Do not take a tub bath, sit in a hot tub or go into a swimming pool until after your first recheck in the office. SPECIAL CARE INSTRUCTIONS: VERY IMPORTANT TO READ AND REVIEW A. Your surgical incision has been closed with a cosmetic suture under the skin that will dissolve in about 6 weeks. In 14 days, you can use a pair of clean scissors and cut the suture that is left outside of the skin at the ends of your incision. 1. The small skin tapes can be removed 7 days after surgery if they have not fallen off by that point. 2. You may keep the wound open to air as much as possible to promote healing after post-op day number 5 unless told otherwise by your doctor. 3. If you think the wound looks like it is becoming infected (redness or worsening drainage) and/or you are experiencing fever, chill or worsening back pain and muscle spasms, contact the office so that we may evaluate you as soon as possible. B. Complications are uncommon, but please contact us if you have any signs or symptoms of: 1. wound infection (fever higher than 102.5 degrees F, redness, separation of wound, drainage, or increasing pain from the incision) 2. blood clots in legs (pain, swelling, redness and warmth in legs) 3. urinary tract infection (fever higher than 102.5 degrees F, burning upon urination or increased frequency of urination) 4. nerve problems (inability to walk on your toes or heels, numbness, loss of bowel or bladder control) 5. any other symptoms that concern you C. Please call the office at if you have any concerns or questions about your operation or recovery. D. No smoking! Smoking drastically decreases the chance of a solid fusion. E. Do not take any anti-inflammatory medications (Indocin, Advil, Motrin, Aspirin, Naprosyn, etc.) as these may inhibit the chance of a solid fusion. Tylenol is okay to take for pain. MANAGING PAIN AFTER SPINAL SURGERY 1. Narcotic medication is intended for short-term use and will be provided for surgical pain. Surgical pain usually lasts for a period of 4-6 weeks. Narcotic medication includes Percocet, Vicodin, Darvocet, Tylenol #3 or Lortab. 2. Longer-term pain is more appropriately treated with non-narcotic medication such as Tylenol ES. 3. Muscle spasm is not appropriately treated with narcotics. Muscle relaxers such as Soma, Flexeril or Skelaxin can be used along with Tylenol ES. 4. Remember that we all live with some "aches and pains". This is not unusual or uncommon after an injury or as we get older. a. Back pain is expected and may include muscle spasms for 4 to 6 weeks after surgery. The pain should gradually improve. If the pain worsens for no apparent reason, please contact the office. b. Intermittent leg pain may also be experienced and should not be concerned about unless it worsens for no apparent reason. If so, please contact the office. 5. We will provide appropriate medication within the normal guidelines of their prescribed use. We will also be very cautious and aware of potential abuse and extended duration of patients' medication needs. a. Pain medications are for your comfort and to assist with sleep and rest so that the tissue can heal. They are not provided in order to return to normal activity and should not be used through the day. To do so or worsening pain at night can result from ongoing tissue damage and development of tolerance to the prescribed medicine. 6. Please allow 2-3 days to process refills. Prescriptions will not be mailed but must be picked up at the office. FOLLOW UP VISIT: Keep your scheduled follow-up appointment. Any questions, please call the office at . Current Hospital Diet Patient's current hospital diet: Regular Diet Discharge Diet Recommended Diet: Regular Diet Procedures Procedures Performed: L5-S1 Lumbar Decompression/Posterior Spinal Fusion, Instrumentation, Interbody Fusion With Application of Interbody Cage at L5-S1, and Posterolateral Gutter Fusion; Application of Bone Morphogenetic Protein; Application of Thania Pending Studies Studies pending at discharge: no Medical Emergencies . Who to Call and When: Medical Emergencies: If at any time you feel your situation is an emergency, please call 911 immediately. . Non-Emergent Contact Non-Emergency issues call your: Primary Care Provider . "Provider Documentation" section prepared by Ru Chappell. . VTE Core Measure Inpt VTE Proph given/why not?: Donte Barnes, SCD's
[2017-05-06 08:04] LABS: BASO % 0.1 %; BASO ABS # 0.01 K/uL (0-0.2); COMPLETE YES; HEMATOCRIT 39.3 % (42-52); IG% 0.4 %; LYMPH ABS # 0.63 K/uL (1.2-3.4); MEAN CELL VOLUME 87.5 fL (80-100); MEAN CORPUSCULAR HEMOGLOBIN 29.2 pg (25-34); MEAN CORPUSCULAR HGB CONC 33.3 g/dl (32-36); MEAN PLATELET VOLUME 9.9 fL (7.4-10.4); MONO % 4.8 %; NEUT % 89.7 %; PLATELET COUNT 267 K/uL (130-400); RED BLOOD COUNT 4.49 M/uL (4.7-6.1); WHITE BLOOD COUNT 12.52 K/uL (4.8-10.8)
--- NOTE | 2017-05-06 08:20 | PROGRESS NOTE ---
DATE: 05/06/2017 SUBJECTIVE: Postop day 1. Back pain is controlled. Leg pain markedly improved. Vital signs stable. T-max 36.8. ANA drained 60 mL. Hematocrit this a.m. pending. OBJECTIVE: On exam, has good strength to testing, appears comfortable. ASSESSMENT: Status post lumbar decompression and fusion. PLAN: At this time, we will initiate physical therapy, advance her bowel regimen and anticipate home tomorrow.
[2017-05-06 08:32] LABS: BUN/CREATININE RATIO 20.1 (10-20); CREATININE 0.9 mg/dl (0.60-1.40); POTASSIUM 4.5 mmol/L (3.5-5.1)
[2017-05-06] MEDS: POLYETHYLENE (MIRALAX) 17 GM PACK PO SCH (08:59)
[2017-05-06] MEDS: PANTOprazole SOD 40 MG TAB PO SCH (08:59)
[2017-05-06] MEDS: DOCUSATE SODIUM 100 MG CAP PO SCH ×2 (08:59→20:41)
[2017-05-06 09:02] LABS: CALCIUM 8.8 mg/dl (8.5-10.1)
[2017-05-06] MEDS: TRAVOPROST Z 0.004% OPH SOLN 2.5 ML BTL OP SCH (20:41)
[2017-05-06] MEDS: DOCUSATE SODIUM/SENNA 50/8.6MG TAB PO SCH (20:41)
[2017-05-07] MEDS: LORAZEPAM 0.5 MG TAB PO PRN ×2 (00:07→01:21)
[2017-05-07 03:07] VITALS: BP 120/75; PULSE 70; TEMP 37; O2SAT 97
[2017-05-07] MEDS ORDERED: POLYETHYLENE (MIRALAX) 17 GM PACK PO SCH (06:00)
[2017-05-07 06:42] VITALS: BP 133/89; PULSE 68; TEMP 36.4; O2SAT 99
[2017-05-07] MEDS: HYDROmorphone HCL 0.5MG/ML 50 ML CASSETTE IV PRN (07:08)
[2017-05-07] MEDS: PANTOprazole SOD 40 MG TAB PO SCH (09:32)
[2017-05-07] MEDS: DOCUSATE SODIUM 100 MG CAP PO SCH (09:32)
[2017-05-07 15:33] VITALS: BP 133/89; PULSE 68; TEMP 36.4; O2SAT 99
--- NOTE | 2017-05-07 16:17 | DISCHARGE SUMMARY ---
DATE OF DISCHARGE: 05/07/2017. PRINCIPAL DIAGNOSIS: Herniated nucleus pulposus L4-L5 with recurrent disc herniation L4-L5. HOSPITAL COURSE FOLLOWS: On 05/02/2017 patient underwent lumbar laminotomy, tolerated this well and taken to the orthopedic floor postoperatively. Unfortunately postop day #1, when he was ambulatory he had a marked acute onset of recurrent leg pain. He was placed on medications, updated MRI was performed on Friday revealing a recurrent disc herniation. Subsequently, we elected to undergo a formal complete discectomy and fusion L5-S1 on 05/05/2017. The patient tolerated this well and taken to the orthopedic floor postoperatively. He progressed nicely and discharged on 05/07/2017 without difficulty. Discharge orders and instructions can be found on the chart for further review.
== END 2017-05-07 16:11 | disposition home or self-care (01) | DRG 460 ==
LOC: C.ACU 10:45 → C.3E 14:00 → ENRESERV 15:27 → OBSVTOIN 05-03 09:54
PROVIDERS: ADMIT Orthopaedic Surgery Orthopaedic Surgery of the Spine; ATTEND Orthopaedic Surgery Orthopaedic Surgery of the Spine
PROC: 0SB40ZZ Excision of Lumbosacral Disc, Open Approach (ICD-10-PCS; 2017-05-01)
PROC: 0SG30AJ Fusion of Lumbosacral Joint with Interbody Fusion Device, Posterior Approach, Anterior Column, Open Approach (ICD-10-PCS; principal; 2017-05-05 15:15)
PROC: 0SG3071 Fusion of Lumbosacral Joint with Autologous Tissue Substitute, Posterior Approach, Posterior Column, Open Approach (ICD-10-PCS; principal; 2017-05-05 15:15)
PROC: 0ST40ZZ Resection of Lumbosacral Disc, Open Approach (ICD-10-PCS; principal; 2017-05-05 15:15)
DX: M51.26 Other intervertebral disc displacement, lumbar region (principal); M51.17 Intervertebral disc disorders with radiculopathy, lumbosacral region